=== PATIENT | male | born 1925 | race Caucasian/White ===

== ENCOUNTER 2017-02-13 07:49 | Day surgery (SDC) | payer OTHER, MEDICARE ==
[2017-02-02 10:18] LABS: BASOPHILS 0.3 %; BASOPHILS ABSOLUTE 0.02 10/3/uL (0.0-0.16); EOSINOPHILS 3.5 %; EOSINOPHILS ABSOLUTE 0.23 10/3/uL (0.0-0.53); HEMATOCRIT 36.8 % (40.0-51.0); HEMOGLOBIN 12.2 g/dL (13.6-17.8); IMMATURE GRANULOCYTES 0.3 %; IMMATURE GRANULOCYTES ABSOLUTE 0.02 10/3/uL (0.0-0.11); LYMPHOCYTES 23.1 %; LYMPHOCYTES ABSOLUTE 1.53 10/3/uL (0.67-4.30); MEAN CORPUS HGB CONC 33.2 g/dL (32.0-36.0); MEAN CORPUSCULAR HEMOGLOB 30.3 pg (26.0-34.0); MEAN CORPUSCULAR VOLUME 91.3 fL (80-100); MEAN PLATELET VOLUME 9.3 fL (9.2-13.0); NEUTROPHILS 63.8 %; NEUTROPHILS ABSOLUTE 4.23 10/3/uL (2.02-8.40); PLATELET COUNT 251 10/3/uL (150-400); RBC DISTRIBUTION WIDTH 13.9 % (12.0-16.0); RED CELL COUNT 4.03 10/6/uL (4.7-6.1); WHITE BLOOD CELLS 6.6 10/3/uL (4.5-10.5)
[2017-02-02 10:20] LABS: MANUAL DIFF NO %
[2017-02-02 10:32] LABS: BUN (BLOOD UREA NITROGEN) 21 MG/DL (6-23); CALCIUM, SERUM 8.5 MG/DL (8.5-10.4); CHLORIDE, SERUM 110 MMOL/L (96-112); CO2 (CARBON DIOXIDE) 27 MMOL/L (24-34); CREATININE 1.08 MG/DL (0.70-1.30); GFR AFRICAN AMERICAN 70 ML/MIN (>=60); GFR NON AFRICAN AMERICAN 61 ML/MIN (>=60); GLUCOSE, SERUM 126 MG/DL (60-99); POTASSIUM, SERUM 4.7 MMOL/L (3.5-5.3); SODIUM, SERUM 144 MMOL/L (135-148)
[~2017-02-13 07:49] MED LIST: ASAB PO; ATEN25 PO; AVODART PO; B-COMPLEX PO; CADUET5 MG/10 MG PO; CALCIUM PO; CENTRUM TAB1 TAB PO; COREG12 PO; ELIQUIS 5 MG TAB5 MG PO; EYE DROPS OTC OPH; FLOMAX4 PO; GLUCOPHXR PO; GLUCPH PO; ICAPS MV PO; ISTALOL0.5 % OP; LIPITOR20 PO; LOTREL1 CA1 PO; OS500+D PO; TRUSOPT2 % OPH; VITAMIN C100 MG PO; VITE PO; XALAT OPH; [UNRECOGNIZED DRUG - OTHER] PO
[2017-08-15] MEDS ORDERED: LIPITOR40 PO (13:48)
[2017-08-15] MEDS ORDERED: LOTREL1 CA2 PO (13:49)
== END 2017-02-13 23:59 | disposition home or self-care (01) ==
LOC: SDC 07:49
PROVIDERS: Specialist
DX: K40.90 Unilateral inguinal hernia, without obstruction or gangrene, not specified as recurrent (principal); Z53.9 Procedure and treatment not carried out, unspecified reason
CPT/HCPCS: 80048; 85025; 93005